=== PATIENT | female | born 1985 | race Caucasian/White ===

== ENCOUNTER → 2022-07-20 10:06 | Outpatient (BNVA) | payer OTHER, SELFPAY | PROVIDERS: PCP Internal Medicine Hematology & Oncology; Visit Provider Nurse Practitioner Family | DX: R06.83 Snoring (principal); R40.0 Somnolence; G43.009 Migraine without aura, not intractable, without status migrainosus | CPT/HCPCS: 99202 ==

== ENCOUNTER → 2022-08-21 09:49 | Outpatient (REF) | payer OTHER, SELFPAY | LOC: HO.SL 09:49 | PROVIDERS: PCP Internal Medicine; Visit Provider Nurse Practitioner Family | DX: Z13.89 Encounter for screening for other disorder (principal) ==

== ENCOUNTER 2023-11-22 14:13 | Outpatient (REF) | payer OTHER, SELFPAY ==
[2023-11-22 14:34] LABS: MANUAL DIFF FLAG NO
[2023-11-22 15:08] LABS: Basophils Absolute Auto 0.1 X10*3/uL (0.0-0.2); Basophils Percent Auto 0.4 % (0-2); Eosinophils Absolute Auto 0.2 X10*3/uL (0.0-0.4); Eosinophils Percent Auto 1.8 % (0-4); Hematocrit 41.2 % (37.0-47.0); Hemoglobin 14.3 g/dl (12.0-16.0); Imm Gran Abs Auto 0.04 X10*3/uL (0.00-0.03); Imm Gran Pct Auto 0.4 % (0.0-0.4); Lymphocytes Absolute Auto 2.2 X10*3/uL (1.2-4.9); Lymphocytes Percent Auto 19.6 % (20-40); Mean Corpuscular HGB Conc 34.7 g/dl (31.0-35.0); Mean Corpuscular Hemoglobin 31.4 pg (27.0-33.0); Mean Corpuscular Volume 90.4 fL (80.0-98.0); Mean Platelet Volume 9.4 fL (9.4-12.3); Monocytes Absolute Auto 0.6 X10*3/uL (0.1-1.2); Monocytes Percent Auto 5.3 % (2-11); Neutrophils Absolute Auto 8.3 x10*3/uL (2.0-8.3); Neutrophils Percent Auto 72.5 % (45-73); Platelet Count 323 X10*3/uL (160-400); Red Blood Count 4.56 X10*6/uL (4.20-5.50); Red Cell Distribution Width 12.3 % (11.0-16.0); White Blood Count 11.4 X10*3/uL (4.8-10.8)
[2023-11-22 15:50] LABS: Alanine Aminotransferase 16 U/L (0-31); Albumin Level 4.6 g/dL (3.5-5.0); Alkaline Phosphatase 56 U/L (39-117); Aspartate Amino Transferase 18 U/L (5-31); Bilirubin Direct 0.1 mg/dL (0.0-0.5); Bilirubin Total 0.5 mg/dL (0.0-1.0); Total Protein 7.3 g/dL (6.5-8.0)
[2023-11-22 17:14] LABS: Vitamin B12 581 pg/mL (200-900)
[2023-11-24 02:33] LABS: Immunoglobulin G 829 mg/dL (600-1640); Immunoglobulin M 45 mg/dL (50-300)
== END 2023-11-22 14:14 | disposition home or self-care (01) ==
LOC: HO.LAB 14:13
PROVIDERS: PCP Internal Medicine; Visit Provider Physician Assistant
DX: G35 Multiple sclerosis (principal)
CPT/HCPCS: 36415; 80076; 82306; 82607; 82784; 85025

== ENCOUNTER 2024-01-26 09:14 | Outpatient (REF) | payer OTHER, SELFPAY ==
--- NOTE | ~2024-01-26 | MR_ITS ---
EXAMINATION: MR BRAIN WITHOUT CONTRAST MR CERVICAL SPINE WITHOUT CONTRAST CLINICAL INFORMATION: Multiple sclerosis. COMPARISON: None available. TECHNIQUE: MRI of the brain and cervical spine was obtained using routine sequences without contrast using MS protocol. This included a sagittal 3D high-resolution T2 FLAIR sequence. FINDINGS: Brain: There are multiple T2/FLAIR hyperintense lesions consistent with an underlying diagnosis of demyelination. This includes lesions within the subcortical, deep white matter, periventricular, callosal, brainstem, and cerebellar distributions. New Lesions: No priors available for comparison. Enhancing Lesions: No contrast utilized for this exam. Restricted Diffusion: None. T1 Black Holes: Approximately 5. Volume Loss: Mild. Additional Findings: No evidence of edema or expansion of the optic nerves. No focal restricted diffusion is seen to suggest acute or subacute cerebral ischemia. No intracranial mass, intra-axial blood products, midline shift, or extra-axial collection is demonstrated. The ventricles and sulcal spaces appear normal. Normal arterial and venous vascular flow voids are present. No signal abnormalities within the superior sagittal or transverse sinuses. No signal abnormalities within the paranasal sinuses or mastoids. Cervical Spine: Straightening of the normal cervical lordosis. Otherwise, normal anatomic alignment. There is mild degenerative disc disease from C3-T1. Normal, homogeneous Associated mixed Modic type discogenic endplate changes including Modic type I discogenic edema from C4-T1. No additional suspicious marrow edema. The vertebral body heights are well-maintained. Patchy T2 hyperintensities throughout the cervical and visualized thoracic spinal cord. Most notably, there are lesions within the ventral cord at the level of C1-C2, dorsal cord at the level of C2-C3, right ventral cord at the level of C4, left ventral cord at the level of C5-C6, and central cord at the level of C6-C7. There also appear to be faint lesions at the levels of T3 and T5-T6. Limited evaluation of the soft tissues of the neck without demonstrated abnormalities. The flow voids of the major cervical vessels are maintained. Normal appearance of the cervicomedullary junction. SPINAL LEVELS: C2-C3: Minimal disc-osteophyte complex. There is mild left and no right uncovertebral joint arthropathy. There is mild bilateral facet joint arthropathy. There is no neural foraminal stenosis. There is no spinal canal stenosis. C3-C4: Mild disc-osteophyte complex. There is mild right and no left uncovertebral joint arthropathy. There is mild left and no right facet joint arthropathy. There is no neural foraminal stenosis. There is no spinal canal stenosis. C4-C5: Mild disc-osteophyte complex. There is moderate right and mild left uncovertebral joint arthropathy. There is mild bilateral facet joint arthropathy. There is mild right and no left neural foraminal stenosis. There is mild spinal canal stenosis. C5-C6: Moderate disc-osteophyte complex. There is mild right and no left uncovertebral joint arthropathy. There is mild bilateral facet joint arthropathy. There is mild left and no right neural foraminal stenosis. There is mild spinal canal stenosis. C6-C7: Mild disc-osteophyte complex. There is mild left and no right uncovertebral joint arthropathy. There is mild bilateral facet joint arthropathy. There is mild left and no right neural foraminal stenosis. There is no spinal canal stenosis. C7-T1: Normal annular contour. There is no uncovertebral joint arthropathy. There is no facet joint arthropathy. There is no neural foraminal stenosis. There is no spinal canal stenosis. MR/MR cervical spine wo con IMPRESSION: 1. Multifocal supratentorial, infratentorial, and spinal cord T2 hyperintensities consistent with an underlying diagnosis of demyelination in the appropriate clinical setting. No demonstrated restricted diffusion to strongly suggest active inflammatory lesions at this time. 2. Mild to moderate multilevel degenerative spondyloarthropathy of the cervical spine as described in detail above. Most notably, there are mild spinal canal stenoses at C4-C5 and C5-C6. Electronically signed by: Floyd Henry DO 02/03/2024 05:40 PM [facility]
--- OUTSIDE RECORDS SUMMARY | 2024-01-30 11:42 | XMS_ITS ---
Author Name [facility] Organization Unknown History of Medication Use Medication Directions Dispensed Refills Start Date End Date Status Nargis 0.35 MG tablet 4 active ocrelizumab (Ocrevus) 300 MG/10ML SOLN 4 active ergocalciferol (VITAMIN D2) capsule 71080 units Take 1 capsule (50,000 Units total) by mouth once a week. 4 active atomoxetine (STRATTERA) 10 MG capsule 4 active ocrelizumab (OCREVUS) 600 mg in sodium chloride (NS) 0.9 % 500 mL IVPB 600 mg, Intravenous, Once, On [place] 05/10/23 at 0900, For 1 doseMust use in-line 0.22 micron filter. ??- Infusion Rate for first full 600 mg dose or reaction with previous infusion: Start at 40 mL/hr. Increase by 40 mL/hr every 30 minutes. Maximum rate: 200 mL/hr. Duration: 3.5 hours or longer.??- Infus 4 completed famotidine (PEPCID) 20 MG tablet 4 active Riboflavin 400 MG TABS 4 active baclofen (LIORESAL) 10 MG tablet 1-2 po hs 4 active gabapentin (NEURONTIN) 400 MG capsule 1 po hs 4 aborted diphenhydrAMINE HCl, Sleep, 25 MG TBDP Take 25 mg by mouth. 4 active albuterol (PROVENTIL HFA;VENTOLIN HFA) 108 (90 Base) MCG/ACT inhaler Inhale 2 puffs into the lungs. 4 active vitamin D3 (cholecalciferol) 10 MCG (400 UNIT) tablet Take 1 tablet (10 mcg total) by mouth daily. 4 active atomoxetine (STRATTERA) 80 MG capsule 4 active benzonatate (TESSALON) 200 MG capsule 4 active methylPREDNISolone sodium succinate (SOLU-Medrol) injection 125 mg 125 mg, Intravenous, Once, On [place] 05/10/23 at 0900, For 1 doseGive 30 minutes prior to ocrelizumab. ??Administer over 2-3 minutes 4 completed diphenhydrAMINE (BENADRYL) injection 50 mg 50 mg, Intravenous, Once, On [place] 05/10/23 at 0900, For 1 doseGive 30 minutes prior to ocrelizumab. IV push over 2-3 minutes.??See PO diphenhydramine order. Please give PO or IV.??Common Side Effects: Drowsiness, stomach upset, confusion, dry mouth.??Administer undiluted. Maximum rate 25 mg/min. 4 completed vitamin B-12 (CYANOCOBALAMIN) 100 MCG tablet Take 0.5 tablets (50 mcg total) by mouth daily. 4 active acetaminophen (TYLENOL) tablet 975 mg 975 mg, Oral, Once, On [place] 05/10/23 at 0900, For 1 doseGive 30 minutes prior to ocrelizumab. 4 completed Vit-Fe Fumarate-FA ( Multivitamins) 28-0.8 MG TABS Take by mouth. 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
--- OUTSIDE RECORDS SUMMARY | 2024-01-30 11:42 | XMS_ITS ---
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 Name Role Phone Capri Talley [facility] [phone] ALLERGIES, ADVERSE REACTIONS, ALERTS Substance Code Code System Type Reaction Severity Status Start Date End Date prednisone 8640 RxNorm Drug allergy () 0 Sulfa (Sulfonamide Antibiotics) RxNorm Drug allergy () 0 Augmentin 143466 RxNorm Drug allergy Hives ([id number]) 0 MEDICATIONS Medication Code Code System Start Date Stop Date Route Dosage Directions Fill Instructions benzonatate 625877 RxNorm 4 oral 1 gabapentin RxNorm 4 Vitamin D3 RxNorm 07/24/2023 baclofen RxNorm 4 Nargis RxNorm 4 atomoxetine HCl RxNorm 09/25/2023 PROBLEMS Problem Name Code Code System Start Date End Date Stat us Chronic pain syndrome 64587019 [facility]omed[facility] Active Multiple sclerosis 29095724 [facility] A ctive Other asthma 866467326 [facility] Active Acute cough 53827181 [facility]omed[facility] 10/19/2023 Active ENCOUNTERS Encounter Diagnosis Code Code System Date Stat us Acute cough 93684606 Snomed[facility] 10/19/2023 Active Other asthma 476919210 Snomed[facility] 10/19/2023 Active IMMUNIZATIONS * None VITAL SIGNS Code Code System Vitals Name Date Value and Un its 8462-4 [facility] Blood Pressure-Diastolic 10/19/2023 82 mmHg 8480-6 [facility] Blood Pressure-Systolic 10/19/2023 1 34 mmHg 8867-4 [facility] Heart Rate 10/19/2023 107 /min 9279-1 [facility] Respiratory Rate 10/19/2023 16 /min 8310-5 [facility] Body Temperature 10/19/2023 99.0 F 79553-2 [facility] Oxygen Saturation 10/19/2023 97 % SOCIAL HISTORY * None PROCEDURES * None RESULTS Test Code Code System Description Result Value Date Ref erence Range [facility] Strep A Not Detected 10/19/2023 Not Det ected [facility] SARS-CoV-2 Not Detected 10/19/2023 Not De tected [facility] Flu A Not Detected 10/19/2023 Not Det ected [facility] Flu B Not Detected 10/19/2023 Not Det ected MEDICAL EQUIPMENT * Patient has no history of implantable devices ASSESSMENT Assessment You have an upper respirator y infection.This is an infection involving the nose, throat and larynx, almost always caused by a virus. The infection rarely spreads or leads to serious long-term problems. Since the infection is caused by a virus, antibiotics are not helpful.It may help your symptoms to use a decongestant nose spray to open the nasal passages and permit drainage. Afrin nasal spray (or a similar decongestant spray) can be used twice a day for up to four days. You may develop tolerance to it if used longer than this.You may take Tylenol 650mg orally every 6 hoursOver the counter Flonase nasal spray can help with any congestion/sinus pressure. With time this can also help alleviate ear pressure that occurs as a result of the congestion.Over the counter [place] Mist Nasal Saline can be used a few times daily to help irrigate the nose/sinuses to help with congestion.Warm tea with honey can help the throat and cough.Return or get rechecked by your doctor if you get high or prolonged fever (over 101 F orally), worsening pain, swelling over your face or eyes, earache, shortness of breath or chest pain, severe headache, stiff neck, vomiting, or a rash.If you are not improving after 10 days of illness you should be re-evaluate. Respiratory tract infections are usually spread by coughing; the virus lands on surfaces and is then picked up on the hands and carried to the nose or mouth - so good hand washing is important to avoid spreading the virus. TREATMENT PLAN Type Description Date MEDICATION Take 200 mg capsule 10/19/2023 APPOINTMENT If not feeling denisha r in 3 day(s), please see your primary care physician. If you do not have a primary care physician, please return to this clinic. 10/19/2023 Labs Tests Test Name Code Code System Date Kylee/Cepheid SARS-CoV-2 & Fl u A/B Multiplex Assay, Amplified Probe Molecular RT-PCR / NAAT 24107 CPT 10/19/2023 Kylee/Cepheid Strep A, DNA, Amplified Probe PCR 59249 CPT 10/19/2023 GOALS * None HEALTH CONCERNS * No Health Concerns FUNCTIONAL AND COGNITIVE STATUS * None CONSULTATION NOTES * None DISCHARGE SUMMARY NOTES * None HISTORY AND PHYSICAL NOTES * None IMAGING NOTES * None LABORATORY REPORT NARRATIVE NOTES * None PATHOLOGY REPORT NARRATIVE NOTES * None PROGRESS NOTES * None
== END 2024-01-26 09:15 | disposition home or self-care (01) ==
LOC: HO.MRI 09:14
PROVIDERS: PCP Internal Medicine; Visit Provider Physician Assistant
DX: G35 Multiple sclerosis (principal)
CPT/HCPCS: 70551; 72141